=== PATIENT | male | born 2000 | race Two or more races ===

== ENCOUNTER 2022-07-29 21:32 | Emergency (ER) | payer OTHER ==
[~2022-07-29] VITALS: Ht 170.2 cm; Wt 86.2 kg
[2022-07-29] MEDS ORDERED: IBUPROFEN 600 MG TABLET ONE (22:21)
[2022-07-29] MEDS ORDERED: ONDANSETRON 4 MG TAB.RAPDIS ONE (22:22)
[2022-07-29] MEDS ORDERED: LEVETIRACETAM (250 MG) 250 MG TABLET PO ONE ×6 (22:22→23:30)
[2022-07-29] MEDS ORDERED: ONDANSETRON HCL/PF 4 MG/2 ML VIAL ONE (22:26)
[2022-07-29] MEDS ORDERED: ONDANSETRON HCL/PF 4 MG/2 ML VIAL IVP ONE (22:30)
[2022-07-29] MEDS ORDERED: IBUPROFEN 600 MG TABLET PO ONE (22:30)
[2022-07-29] MEDS ORDERED: IV NS 0.9% 500 ML BAG IV ONE (22:30)
[2022-07-29 22:33] LABS: BASOPHILS # (AUTO) 0.1 K/uL (0.0-0.2); BASOPHILS % (AUTO) 0.5 % (0.0-2.0); EOSINOPHILS % (AUTO) 0.4 % (0.0-6.0); HEMATOCRIT 44 % (39-51); HEMOGLOBIN 14.6 g/dL (13.5-17.5); LYMPHOCYTES # (AUTO) 3.7 K/uL (0.8-4.8); LYMPHOCYTES % (AUTO) 31.9 % (20.0-44.0); MEAN CORPUSCULAR HGB CONC 33 g/dl (31.0-36.0); MEAN CORPUSCULAR VOLUME 85 fL (80-96); MONOCYTES # (AUTO) 0.6 K/uL (0.1-1.30); MONOCYTES % (AUTO) 5.3 % (2.0-12.0); NEUTROPHILS # (AUTO) 7.2 K/uL (1.8-8.9); NEUTROPHILS % (AUTO) 61.9 % (43.0-81.0); PLATELET COUNT (AUTO) 272 K/uL (150-450); RED BLOOD CELL COUNT(AUTO) 5.14 MIL/uL (4.5-6.0); WHITE BLOOD COUNT (AUTO) 11.6 K/uL (4.3-11.0)
[2022-07-29 22:53] LABS: CALCIUM, SERUM 9.4 mg/dL (8.5-10.1); CARBON DIOXIDE 23 mmol/L (21-32); CHLORIDE 103 mmol/L (98-107); CREATININE 1.3 mg/dL (0.6-1.3); GLUCOSE 145 mg/dL (74-106); POTASSIUM 3.7 mmol/L (3.5-5.1); SODIUM SERUM 138 mmol/L (136-145); UREA NITROGEN, BLOOD 16 mg/dL (7-18)
[2022-07-29 22:58] LABS: ALANINE AMINOTRANSFERASE 82 U/L (12-78); ALBUMIN 4.3 g/dL (3.4-5.0); ALKALINE PHOSPHATASE 79 U/L (46-116); ASPARTATE AMINOTRANSFERASE 35 U/L (15-37); BILIRUBIN,DIRECT 0.1 mg/dL (0.0-0.2); BILIRUBIN,TOTAL 0.3 mg/dL (0.2-1.0); TOTAL PROTEIN, SERUM 7.7 g/dL (6.4-8.2)
[2022-07-29 22:59] LABS: ALCOHOL, BLOOD < 3 mg/dL (0-0)
--- NOTE | 2022-07-29 23:00 | NUR ---
JOCE FROM A [facility] FOR WITNESSED TONIC CLONIC SEIZURE APPROX2-5MINS. HX OF SEIZURE ON KEPPRA, BELIEVES HE MAY HAVE MISSED HIS LAST NIGHTS DOSE BUT IS UNSURE. AWAKE AND ALERTX4 AT THIS TIME. PLACED ON MONITOR AND ALL V/S WNL. SEIZURE PRECUATIONS IN PLACE
--- NOTE | 2022-07-29 23:21 | NUR ---
URINE SENT TO LAB
[2022-07-30] MEDS ORDERED: KETOROLAC TROMETHAMINE INJ 30 MG/ML VIAL ONE (00:45)
[2022-07-30] MEDS ORDERED: KETOROLAC TROMETHAMINE INJ 30 MG/ML VIAL IV ONE (01:00)
[2022-07-30 01:02] LABS: BILIRUBIN,URINE NEGATIVE (NEGATIVE); LEUKOCYTE ESTERASE ,URINE NEGATIVE (NEGATIVE); NITRITE, URINE NEGATIVE (NEGATIVE); PROTEIN,URINE 1+ mg/dl (NEGATIVE); UGLUCOSE NEGATIVE (NEGATIVE); UROBILINOGEN,URINE 0.2 EU/dL (0.2)
[2022-07-30 01:03] LABS: COLOR,URINE LIGHT YELLOW (YELLOW)
[2022-07-30 01:06] LABS: BACTERIA,URINE None seen /HPF (None Seen); SQUAMOUS EPITHELIAL CELL,UR 0-2 /HPF (None Seen)
[2022-07-30 01:07] LABS: HYALINE CASTS, URINE Few /LPF (None Seen)
--- NOTE | 2022-07-30 02:31 | NUR ---
SENT IMAGES TO DR KATHLEEN AND CALLED HIM FOR CONSULT
--- NOTE | 2022-07-30 02:46 | NUR ---
COVID SWAB SENT TO LAB
[2022-07-30] MEDS ORDERED: IV NS 0.9% 500 ML BAG IV ONE (03:00)
--- NOTE | 2022-07-30 03:20 | NUR ---
DR KATHLEEN RESPONDED THE CALL AND RECOMMENDED TRANSFERRING PATIENT FOR HIGHER LOC.
--- NOTE | 2022-07-30 03:27 | NUR ---
CALLED [facility] AND FAED THE CLINICALS TO [phone]
--- NOTE | 2022-07-30 03:45 | NUR ---
PT GOT ACCEPTED AT [facility] UNDER CARE OF DR HAMMONDS
--- NOTE | 2022-07-30 04:09 | NUR ---
REPORT GIVEN TO ERICH VEGA LEWISTON
--- NOTE | 2022-07-30 04:42 | NUR ---
PT PICKED UP BY [facility]. REPORT GIVEN TO JUAN C WALLS FOR ILANA. PT CHART COPIED AND PROVIDED TO JUAN C. V/S STABLE AT TRANSFER.
[2022-07-30 04:46] VITALS: BP 108/61
== END 2022-07-30 04:50 | disposition short-term general hospital (02) ==
LOC: ER 21:38
DX: S06.5XAA Traumatic subdural hemorrhage with loss of consciousness status unknown, initial encounter (principal); G40.909 Epilepsy, unspecified, not intractable, without status epilepticus; Z20.822 Contact with and (suspected) exposure to COVID-19; X58.XXXA Exposure to other specified factors, initial encounter; Y93.9 Activity, unspecified; Y92.89 Other specified places as the place of occurrence of the external cause; Y99.8 Other external cause status
CPT/HCPCS: 99291; 96374; 96361; 93005 ×2; 85025; 80048; 80076; 81001; 36415; 85730; 80320; 80307; 96375; 70450; 87426; J2405; J7040 ×2; J1885; C9803; G0480; Q0162